=== PATIENT | male | born 1965 | race African-American/Black ===

== ENCOUNTER 2016-06-15 16:55 | Emergency (ER) | payer MEDICARE, OTHER ==
[2016-06-15] MEDS ORDERED: NORMAL SALINE 1000 ML 1,000 ML IV PRN (17:12)
[2016-06-15] MEDS ORDERED: THIAMINE HCL 100 MG, FOLIC ACID 1 MG in NORMAL SALINE 50 ML IV ONE (17:13)
[2016-06-15 17:27] LABS: ABSOLUTE EOSINOPHILS # (AUTO) 0.1 10^3/uL (0.0-0.6); ABSOLUTE LYMPHOCYTES (AUTO) 1.3 10^3/uL (0.5-4.7); ABSOLUTE MONOCYTES (AUTO) 0.3 10^3/uL (0.1-1.4); ABSOLUTE NEUT (AUTO) 1.7 10^3/uL (1.7-8.2); BASOPHILS % (AUTO) 0.8 % (0-2); EOSINOPHILS % (AUTO) 1.6 % (0-6); HEMATOCRIT 38.2 % (37.9-51.0); HEMOGLOBIN 12.5 g/dL (13.5-17.0); HGB HCT DIFFERENCE -0.7; LYMPHOCYTES % (AUTO) 37.9 % (13-45); MEAN CORPUSCULAR HEMOGLOBIN 25.4 pg (27.0-33.4); MEAN CORPUSCULAR HGB CONC 32.7 g/dL (32.0-36.0); MEAN CORPUSCULAR VOLUME 78 fl (80-97); MONOCYTES % (AUTO) 9.9 % (3-13); RED BLOOD COUNT 4.91 10^6/uL (4.35-5.55); RED CELL DISTRIBUTION WIDTH 15.4 % (11.5-14.0); SEGMENTED NEUTROPHILS % (AUTO) 49.8 % (42-78); WHITE BLOOD COUNT 3.4 10^3/uL (4.0-10.5)
[2016-06-15 17:51] LABS: ALANINE AMINOTRANSFERASE 27 U/L (21-72); ALBUMIN 3.9 g/dL (3.5-5.0); ALKALINE PHOSPHATASE 76 U/L (38-126); ANION GAP 14 (5-19); ASPARTATE AMINO TRANSFERASE 36 U/L (17-59); BLOOD UREA NITROGEN 8 mg/dL (7-20); CARBON DIOXIDE 24 mmol/L (22-30); CHLORIDE 104 mmol/L (98-107); GLUCOSE 86 mg/dL (75-110); POTASSIUM 3.6 mmol/L (3.6-5.0); SODIUM 142.3 mmol/L (137-145)
[2016-06-15 17:52] LABS: ALCOHOL 106 mg/dL (NONE DETECTED); BILIRUBIN,TOTAL 0.3 mg/dL (0.2-1.3); CREATINE KINASE 185 U/L (55-170); LIPASE 98.2 U/L (23-300); TOTAL PROTEIN 6.5 g/dL (6.3-8.2)
[2016-06-15 17:59] LABS: APPEARANCE,URINE CLEAR; BILIRUBIN,URINE NEGATIVE (NEGATIVE); GLUCOSE, URINE NEGATIVE (NEGATIVE); KETONES,URINE NEGATIVE (NEGATIVE); LEUKOCYTE ESTERASE,URINE NEGATIVE (NEGATIVE); NITRITE,URINE NEGATIVE (NEGATIVE); PROTEIN,URINE NEGATIVE (NEGATIVE); URINE SPECIFIC GRAVITY 1.001; UROBILINOGEN,URINE NEGATIVE mg/dL (<2.0)
[2016-06-15 18:02] LABS: CREATINE KINASE MB 1.16 ng/mL (<4.55)
[2016-06-15 18:03] LABS: TROPONIN I < 0.012 ng/mL
[2016-06-15 18:12] LABS: URINE BARBITURATES SCREEN NEGATIVE; URINE METHADONE SCREEN NEGATIVE; URINE OPIATES LOW NEGATIVE; URINE PHENCYCLIDINE SCREEN NEGATIVE
[2016-06-15] MEDS ORDERED: HALOPERIDOL LACTATE INJ 5 MG/1 ML VIAL IV ONE (18:12)
--- NOTE | 2016-06-15 18:37 | ER Document Report ---
ED General - General Time seen by provider: 17:00 Mode of Arrival: Medic Information source: Emergency Med Personnel TRAVEL OUTSIDE OF THE [place] IN LAST 30 DAYS: No <NIKA LUND - Last Filed: 06/15/16 19:24> <KAMLA WATERS - Last Filed: 06/16/16 10:28> - General Chief Complaint: Altered Mental Status Stated Complaint: POSSIBLE ETOH Notes: 51-year-old male brought by EMS personnel report that he was found with slurred speech and Jean's. Staff there initially called [place] police and then called EMS. Patient has no specific complaints now but has been uncooperative during his stay here has attempted on 2 occasions to smoke in the bathroom. He does not answer questions regarding any recent symptoms he might have. Known is with him now. Physical Exam: General: Alert, appears well. Ambulating without difficulty HEENT: Normocephalic. Atraumatic. PERRLA. Extraocular movements intact. Oropharynx clear. Neck: Supple. Non-tender. Respiratory: No respiratory distress. Clear and equal breath sounds bilaterally. Cardiovascular: Regular rate and rhythm. Abdominal: Normal Inspection. Soft, non-tender. No distension. Normal Bowel Sounds. Back: Non-tender. No deformity or step off. Extremities: Moves all four extremities. Upper extremities: Normal inspection. Non-tender. Normal color. Normal ROM. Normal temperature. Lower extremities: Normal inspection. Non-tender. No edema. Normal color. Normal ROM. Normal temperature. Neurological: Speech is somewhat garbled. No cranial nerve deficits appreciated. Patient moves all extremities well but does not cooperate with formal neurologic testing patient is alert and oriented person and place Psychological: Normal affect. Normal Mood. Unable to assess presence or absence of audiovisual hallucinations, suicidal ideation, or homicidal ideation Skin: Warm. Dry. Normal color. (NIKA LUND) - Related Data Allergies/Adverse Reactions: No Known Allergies Allergy (Verified 10/19/14 17:25) Past Medical History - General Cannot obtain history due to: Intoxicated, Uncooperative - Social History Family History: Other - Unable to obtain - Past Medical History Cardiac Medical History: Reports: Hx Hypertension Denies: Hx Coronary Artery Disease, Hx Heart Attack Pulmonary Medical History: Reports: Hx COPD, Hx Pneumonia Denies: Hx Asthma, Hx Bronchitis, Hx Tuberculosis Neurological Medical History: Denies: Hx Cerebrovascular Accident, Hx Seizures Endocrine Medical History: Reports: Hx Diabetes Mellitus Type 2 Renal/ Medical History: Reports: Hx Kidney Stones GI Medical History: Reports: Hx Gastroesophageal Reflux Disease, Hx Hepatitis - Hepatitis C Musculoskeltal Medical History: Reports Hx Arthritis Psychiatric Medical History: Reports: Hx Schizophrenia Infectious Medical History: Reports: Hx Hepatitis - Hepatitis C Past Surgical History: Reports: Hx Cholecystectomy - MOM STATES THAT SHE THINKS THIS WAS REMOVED. Denies: Hx Appendectomy, Hx Bowel Surgery, Hx Coronary Artery Bypass Graft, Hx Gastric Bypass Surgery, Hx Herniorrhaphy, Hx Pacemaker, Hx Tonsillectomy - Immunizations Hx Diphtheria, Pertussis, Tetanus Vaccination: No <NIKA LUND - Last Filed: 06/15/16 19:24> - Social History Smoking Status: Current Every Day Smoker Cigarette use (# per day): Yes Chew tobacco use (# tins/day): No Smoking Education Provided: No <KAMLA WATERS - Last Filed: 06/16/16 10:28> Review of Systems - Review of Systems -: Yes ROS unobtainable due to patient's medical condition <NIKA LUND - Last Filed: 06/15/16 19:24> Course - Laboratory Result Diagrams: 06/15/16 17:16 06/15/16 17:16 - Diagnostic Test Radiology reviewed: Image reviewed, Reports reviewed <NIKA LUND - Last Filed: 06/15/16 19:24> - Laboratory Result Diagrams: 06/15/16 17:16 06/15/16 17:16 <KAMLA WATERS - Last Filed: 06/16/16 10:28> - Re-evaluation Re-evalutation: 06/15/16 18:35 Record shows patient has a history of schizophrenia. He is currently intoxicated and not safe for discharge. I cannot tell if he has refused to cooperate with exam and further investigation of possible mental illness is related to his alcohol use or simply schizophrenia. Current plan is to keep him in the emergency department overnight with IV fluids along with thiamine and folate psychiatric evaluation in a.m. The patient is not currently medically clear and is not competent to choose to refuse care in the emergency department 06/15/16 19:22 And the radiologist finding of possible left lower lobe infiltrate patient will be started on Zithromax Z-Murphy 06/15/16 19:23 (NIKA LUND) - Vital Signs Vital signs: Temp Pulse Resp BP Pulse Ox 98.1 F 78 20 139/91 H 97 06/16/16 09:33 06/16/16 09:33 06/16/16 09:33 06/16/16 09:33 06/16/16 09:33 (NIKA LUND) (KAMLA WATERS) - Laboratory Laboratory results interpreted by me: 06/15/16 06/15/16 17:16 17:16 WBC 3.4 L Hgb 12.5 L MCV 78 L MCH 25.4 L RDW 15.4 H Creatine Kinase 185 H Salicylates < 1.0 L Acetaminophen < 10 L (NIKA LUND) (KAMLA WATERS) - EKG Interpretation by Me Additional EKG results interpreted by me: 06/15/16 18:34 EKG reviewed by myself shows sinus tachycardia at 104 with no acute changes ( NIKA LUND) Discharge <NIKA LUND - Last Filed: 06/15/16 19:24> <KAMLA WATERS - Last Filed: 06/16/16 10:28> - Discharge Clinical Impression: Pneumonia Qualifiers: Pneumonia type: due to unspecified organism Laterality: left Lung location: lower lobe of lung Qualified Code(s): J18.1 - Lobar pneumonia, unspecified organism Alcohol intoxication Qualifiers: Complication of substance-induced condition: uncomplicated Qualified Code(s): F10.120 - Alcohol abuse with intoxication, uncomplicated Condition: Stable Disposition: HOME, SELF-CARE Additional Instructions: Pneumonia Your examination indicates that you have pneumonia. This is an infection of the lung tissue, usually caused by bacteria or a virus. Symptoms include cough, fever, shaking chills, chest pain, shortness of breath, and coughing up bloody sputum. Treatment for bacterial pneumonia includes rest, antibiotics for 10 to 14 days, increasing your clear liquid intake, a cool mist humidifier at your bedside, and fever medication. Often, a repeat chest X-ray is performed in a few weeks--even if you feel better--to ascertain whether the infection has completely resolved and no underlying lung problem is present. You should call the physician if you develop persistent vomiting, high fever that does not respond to fever medication, increasing shortness of breath , confusion, or lethargy. Also, failure to improve within two to three days is an indication for re-examination. Follow up with your physician tomorrow for further care or return to the ED IMMEDIATELY if symptoms worsen or new concerns occur Prescriptions: Azithromycin [Zithromax 250 mg Tablet] 250 mg PO ASDIR PRN #6 tablet PRN Reason:
[2016-06-15] MEDS ORDERED: HALOPERIDOL LACTATE INJ 5 MG/1 ML VIAL IV PRN (19:46)
--- NOTE | 2016-06-15 20:06 | EKG REPORT ---
SEVERITY:- ABNORMAL ECG - SINUS TACHYCARDIA PROBABLE LVH WITH SECONDARY REPOL ABNRM : Confirmed by: Chanelle Donnelly 15-Jun-2016 20:05:57
[2016-06-16] MEDS ORDERED: ASPIRIN 81 MG TABLET, CHEWABLE PO ONE (02:14)
--- NOTE | 2016-06-16 09:08 | ER Document Report ---
Doctor's Note Notes: 06/16/16 10:26 Patient reevaluated sober and stable at this time vital signs have been stable. Family is now here to take patient home Patient will be discharged home with antibiotics for left lower lobe pneumonia
--- NOTE | 2016-06-16 09:13 | PSYCHOLOGICAL NOTE ---
Psych Note - Psych Note Psych Note: Patient is a 51 year old male who presented last night after he was found at [facility] with slurred speech, possibly intoxicated. Patient is known to this Department and this Clinician for prior episodes of similar etiology. Patient' s BAL upon arrival was 106, and patient is currently clinically sober this morning. Patient now states he was not drunk and nothing happened. Patient states he lives with his mother. He states he has a doctor, but does not go to the doctor like he used to. Patient is a poor historian and not able to provide any meaningful information. Patient's mother, Miguel Childs or states she was unaware the patient was in the ER. Mother states he continues to receive outpatient medication management with [facility] and declines to report what occurred to hinder the ACTT Service, as this service was initiated in November of this past year. Mother reports she has no concerns with patient discharging and returning home. She states she will secure transportation and come to pick him up this morning. Patient is alert and oriented. Mood is calm and cooperative. Patient denies suicidal/homicidal ideations, intent, plan, or means. Patient denies A/V H. Thought processes are organized. Conversational speech was low for rate, tone, and prosody. Intellectual abilities were estimated within the low functioning range. Attention and focus were fair. Insight was poor, judgment and impulse control appear to have improved to fair. Diagnosis: 298.9 (F29) Unspecified Schizophrenia Spectrum and Other Psychotic Disorder R/O IDD Patient is psychiatrically cleared for discharge and recommended for rescind IVC. Patient is considered to be at his baseline functioning and this episode appears to be precipitated by alcohol use and it is unclear why the patient was brought to the ED with no specific medical complaint. I consulted with Dr. Madrid regarding the care and management of this patient. ED MD is in agreement with disposition and recommendations.
[2016-06-16 09:42] VITALS: BP 139/91
== END 2016-06-16 10:00 | disposition home or self-care (01) ==
LOC: ER 16:55
DX: J18.1 Lobar pneumonia, unspecified organism (principal); R41.82 Altered mental status, unspecified; F10.120 Alcohol abuse with intoxication, uncomplicated
CPT/HCPCS: 93005; 99285; 96361; 96375; 96365; 36415; 82553; 80307 ×4; 82550; 83690; 83735; 85025; 80053; 81001; 84484; 71010; 70450; 93010; A9270; J3490; J1630; J3411; J7030

== ENCOUNTER 2016-07-14 09:03 | Emergency (ER) | payer MEDICARE, MEDICAID ==
[2016-07-14 10:20] LABS: ABSOLUTE LYMPHOCYTES (AUTO) 1.1 10^3/uL (0.5-4.7); ABSOLUTE MONOCYTES (AUTO) 0.5 10^3/uL (0.1-1.4); ABSOLUTE NEUT (AUTO) 5.9 10^3/uL (1.7-8.2); BASOPHILS % (AUTO) 0.3 % (0-2); EOSINOPHILS % (AUTO) 0.1 % (0-6); HEMOGLOBIN 12.9 g/dL (13.5-17.0); HGB HCT DIFFERENCE -1.3; LYMPHOCYTES % (AUTO) 14.4 % (13-45); MEAN CORPUSCULAR HGB CONC 32.3 g/dL (32.0-36.0); MEAN CORPUSCULAR VOLUME 77 fl (80-97); MONOCYTES % (AUTO) 7.2 % (3-13); RED BLOOD COUNT 5.16 10^6/uL (4.35-5.55); RED CELL DISTRIBUTION WIDTH 16.1 % (11.5-14.0); WHITE BLOOD COUNT 7.6 10^3/uL (4.0-10.5)
[2016-07-14 10:34] LABS: APPEARANCE,URINE CLEAR; BILIRUBIN,URINE NEGATIVE (NEGATIVE); GLUCOSE, URINE NEGATIVE (NEGATIVE); KETONES,URINE NEGATIVE (NEGATIVE); LEUKOCYTE ESTERASE,URINE NEGATIVE (NEGATIVE); NITRITE,URINE NEGATIVE (NEGATIVE); PROTEIN,URINE NEGATIVE (NEGATIVE); URINE SPECIFIC GRAVITY 1.006; UROBILINOGEN,URINE NEGATIVE mg/dL (<2.0)
[2016-07-14 10:46] LABS: ALANINE AMINOTRANSFERASE 27 U/L (21-72); ALBUMIN 4.3 g/dL (3.5-5.0); ALKALINE PHOSPHATASE 75 U/L (38-126); ANION GAP 13 (5-19); ASPARTATE AMINO TRANSFERASE 32 U/L (17-59); BILIRUBIN,DIRECT 0.2 mg/dL (0.0-0.4); BILIRUBIN,TOTAL 0.4 mg/dL (0.2-1.3); BLOOD UREA NITROGEN 10 mg/dL (7-20); CALCIUM 9.3 mg/dL (8.4-10.2); CARBON DIOXIDE 27 mmol/L (22-30); CHLORIDE 105 mmol/L (98-107); CREATININE RESULT 0.87 mg/dL (0.52-1.25); GLUCOSE 85 mg/dL (75-110); POTASSIUM 3.9 mmol/L (3.6-5.0); SODIUM 144.9 mmol/L (137-145); TOTAL PROTEIN 7.3 g/dL (6.3-8.2)
[2016-07-14 10:47] LABS: ALCOHOL < 10 mg/dL (NONE DETECTED)
[2016-07-14 11:03] LABS: URINE BARBITURATES SCREEN NEGATIVE; URINE METHADONE SCREEN NEGATIVE; URINE OPIATES LOW NEGATIVE; URINE PHENCYCLIDINE SCREEN NEGATIVE
--- NOTE | 2016-07-14 11:28 | PSYCHOLOGICAL NOTE ---
Psych Note - Psych Note Psych Note: Patient is a 51 year old male who presents via his family member with reports that he is acting erratic and kept them awake all night. Patient is known to this clinician and this Department for numerous prior episodes of similar etiology. Patient is diagnosed with Schizophrenia and has a long history of mental health treatment. Patient today voices no complaints himself. He states he is here to get his medications straightened out. He is observed laying in his bed, and at times talking as though he is engaging in a reciprocal conversation. Patient states he has been taking his medications, but cannot or will not verbally state which medications he is prescribed. He also has difficulty recalling the name of his psychiatric provider and instead names his PCM. Patient provides verbal consent to speak with his relative who dropped him off at the hospital. Sister, Elizabeth and Niece, Lou states: Patient has been demonstrating more and more erratic behaviors. Collectively, they report the patient has been wandering away from the home at all hours of the night, approaching strangers to include children at the bus stop, toileting outside, attempting to enter stranger's homes, and walked 15+ miles to other family member's homes. Patient was also noted to have made threatening statements towards family, and others, "Im going to f you up." Family reports concerns for patient's safety and the safety of their mother, whom should be noted is his legal guardian. Sister states guardian is elderly and recently had a stroke and is no longer able to serve in that capacity. Discussed with family the need to contact [facility] which they state they had already contacted and have been put in touch with [facility] [place] to assist with placement seeking, as well as DSS to request assistance with the guardianship. Patient is A&O to name and location. Mood is anxious with congruent affect. Patient denied suicidal/homicidal ideations, intent, plan, or means. Patient denies A/V H; however presented as though he was responding to internal stimuli. Thought processes were disorganized. Conversational speech was WNL for this patient. Intellectual abilities were estimated within lower average range. Attention and focus were poor. Insight, judgment, and impulse control were poor. Unspecified Schizophrenia and Other Psychotic Disorder Patient is recommended for IVC for further evaluation and observation. Patient is severely and persistently mentally ill with Schizophrenia; however, presents today outside of his baseline functioning, aeb engaging in reciprocal conversations with his AH; wandering from home, aggression towards family, etc. APS was contacted to report concerns over patient's living environment as he is noted to live with his mother, who is also his guardian but is elderly and recently suffered a stroke. I consulted with Dr. Madrid in regards to the care and management of this patient. ED MD is in agreement with disposition and recommendations.
--- NOTE | 2016-07-14 12:44 | ER Document Report ---
ED General - General Chief Complaint: Psych Problem Stated Complaint: PSYCH EVALUATION Mode of Arrival: Medic Information source: Patient Notes: 51-year-old male history of psychiatric disorder who is been off his medications recently presents with concerns for self-harm gesture and aggressive behavior TRAVEL OUTSIDE OF THE [place] IN LAST 30 DAYS: No - HPI Onset: Just prior to arrival Onset/Duration: Sudden Quality of pain: No pain Severity: Moderate Pain Level: Denies Associated symptoms: Other Exacerbated by: Denies Relieved by: Denies Similar symptoms previously: Yes Recently seen / treated by doctor: Yes - Related Data Allergies/Adverse Reactions: No Known Allergies Allergy (Verified 07/14/16 09:10) Home Medications: Current Home Medications Benztropine Mesylate [Cogentin 1 mg Tablet] 1 mg PO BID 07/14/16 [History] Lubiprostone [Amitiza 24 Mcg Capsule] 24 mcg PO BID 07/14/16 [History] Metformin HCl [Glucophage] 500 mg PO DAILY 07/14/16 [History] Past Medical History - Social History Smoking Status: Current Some Day Smoker Cigarette use (# per day): Yes Chew tobacco use (# tins/day): No Smoking Education Provided: No Frequency of alcohol use: None Drug Abuse: None Family History: Other - Unable to obtain - Past Medical History Cardiac Medical History: Reports: Hx Hypertension Denies: Hx Coronary Artery Disease, Hx Heart Attack Pulmonary Medical History: Reports: Hx COPD, Hx Pneumonia Denies: Hx Asthma, Hx Bronchitis, Hx Tuberculosis Neurological Medical History: Denies: Hx Cerebrovascular Accident, Hx Seizures Endocrine Medical History: Reports: Hx Diabetes Mellitus Type 2 Renal/ Medical History: Reports: Hx Kidney Stones. Denies: Hx Peritoneal Dialysis GI Medical History: Reports: Hx Gastroesophageal Reflux Disease, Hx Hepatitis - Hepatitis C Musculoskeltal Medical History: Reports Hx Arthritis Psychiatric Medical History: Reports: Hx Schizophrenia Infectious Medical History: Reports: Hx Hepatitis - Hepatitis C Past Surgical History: Reports: Hx Cholecystectomy - MOM STATES THAT SHE THINKS THIS WAS REMOVED. Denies: Hx Appendectomy, Hx Bowel Surgery, Hx Coronary Artery Bypass Graft, Hx Gastric Bypass Surgery, Hx Herniorrhaphy, Hx Pacemaker, Hx Tonsillectomy - Immunizations Hx Diphtheria, Pertussis, Tetanus Vaccination: No Review of Systems - Review of Systems Notes: REVIEW OF SYSTEMS: CONSTITUTIONAL : Denies fever, chills, or sweats. Denies recent illness. EENT: Denies eye, ear, throat, or mouth pain or symptoms. Denies nasal or sinus congestion or discharge. Denies throat, tongue, or mouth swelling or difficulty swallowing. CARDIOVASCULAR: Denies chest pain. Denies palpitations or racing or irregular heart beat. Denies ankle edema. RESPIRATORY: Denies cough, cold, or chest congestion. Denies shortness of breath, difficulty breathing, or wheezing. GASTROINTESTINAL: Denies abdominal pain or distention. Denies nausea, vomiting , or diarrhea. Denies blood in vomitus, stools, or per rectum. Denies black, tarry stools. Denies constipation. GENITOURINARY: Denies difficulty urinating, painful urination, burning, frequency, blood in urine, or discharge. MUSCULOSKELETAL: Denies back or neck pain or stiffness. Denies joint pain or swelling. SKIN: Denies rash, lesions or sores. HEMATOLOGIC : Denies easy bruising or bleeding. LYMPHATIC: Denies swollen, enlarged glands. NEUROLOGICAL: Denies confusion or altered mental status. Denies passing out or loss of consciousness. Denies dizziness or lightheadedness. Denies headache. Denies weakness or paralysis or loss of use of either side. Denies problems with gait or speech. Denies sensory loss, numbness, or tingling. Denies seizures. PSYCHIATRIC: Patient has aggressive behavior ALL OTHER SYSTEMS REVIEWED AND NEGATIVE. Dictation was performed using [employer] voice recognition software PHYSICAL EXAMINATION: GENERAL: Well-appearing, well-nourished and in no acute distress. HEAD: Atraumatic, normocephalic. EYES: Pupils equal round and reactive to light, extraocular movements intact, sclera anicteric, conjunctiva are normal. ENT: Nares patent, oropharynx clear without exudates. Moist mucous membranes. NECK: Normal range of motion, supple without lymphadenopathy LUNGS: Breath sounds clear to auscultation bilaterally and equal. No wheezes rales or rhonchi. HEART: Regular rate and rhythm without murmurs ABDOMEN: Soft, nontender, nondistended abdomen. No guarding, no rebound. No masses appreciated. Musculoskeletal: Normal range of motion, no pitting or edema. No cyanosis. NEUROLOGICAL: Cranial nerves grossly intact. Normal speech, normal gait. Normal sensory, motor exams PSYCH: Patient noted to be confused intermittently and states he is ready to leave SKIN: Warm, Dry, normal turgor, no rashes or lesions noted. Physical Exam - Vital signs Vitals: Temp Pulse Resp BP Pulse Ox 98.1 F 118 H 18 149/80 H 99 07/14/16 09:09 07/14/16 09:09 07/14/16 09:09 07/14/16 09:09 07/14/16 09:09 Course - Re-evaluation Re-evalutation: 07/14/16 16:07 I believe patient is medically stable but will require a mental health evaluation regarding his medications. I will hold him involuntarily for his own safety - Vital Signs Vital signs: Temp Pulse Resp BP Pulse Ox 98.1 F 118 H 18 149/80 H 99 07/14/16 09:09 07/14/16 09:09 07/14/16 09:09 07/14/16 09:09 07/14/16 09:09 - Laboratory Result Diagrams: 07/14/16 09:49 07/14/16 09:49 Laboratory results interpreted by me: 07/14/16 07/14/16 09:49 09:49 Hgb 12.9 L MCV 77 L MCH 25.0 L RDW 16.1 H Acetaminophen < 10 L - EKG Interpretation by Nv EKG shows normal: Sinus rhythm, Trosper, Intervals, QRS Complexes Discharge - Discharge Clinical Impression: Mental disorder Schizophrenia Qualifiers: Schizophrenia type: unspecified Qualified Code(s): F20.9 - Schizophrenia, unspecified Condition: Stable Disposition: PSYCH HOSP/UNIT Additional Instructions: Please follow-up with the care plan provided to you by mental health team will return immediately if there are any other concerns
[2016-07-14] MEDS ORDERED: OXCARBAZEPINE 150 MG TABLET PO SCH (12:45)
[2016-07-14] MEDS: BUSPIRONE HCL 10 MG TABLET PO SCH (13:11)
--- NOTE | 2016-07-14 13:11 | EKG REPORT ---
SEVERITY:- ABNORMAL ECG - SINUS TACHYCARDIA CONSIDER LEFT VENTRICULAR HYPERTROPHY BORDERLINE PROLONGED QT INTERVAL : Confirmed by: Chandan Marshall MD 14-Jul-2016 13:10:22
[2016-07-14] MEDS: OLANZAPINE 5 MG TABLET PO SCH (15:57)
[2016-07-14] MEDS: BENZTROPINE MESYLATE 1 MG TABLET PO SCH (18:29)
[2016-07-14] MEDS: LUBIPROSTONE 24 MCG CAPSULE PO SCH (18:30)
[2016-07-14 18:36] VITALS: BP 140/87
[2016-07-14] MEDS ORDERED: BUSPIRONE HCL 10 MG TABLET PO SCH (22:00)
--- NOTE | 2016-07-15 08:41 | PSYCHOLOGICAL NOTE ---
Psych Note - Psych Note Psych Note: Patient is a 51 year old male who presents via his family member with reports that he is acting erratic and kept them awake all night. Patient is known to this clinician and this Department for numerous prior episodes of similar etiology. Patient is diagnosed with Schizophrenia and has a long history of mental health treatment. Patient today voices no complaints himself. He states he is here to get his medications straightened out. He is observed laying in his bed, and at times talking as though he is engaging in a reciprocal conversation. Patient states he has been taking his medications, but cannot or will not verbally state which medications he is prescribed. He also has difficulty recalling the name of his psychiatric provider and instead names his PCM. Patient provides verbal consent to speak with his relative who dropped him off at the hospital. Re-evaluation Patient states that he is just here for his medication. He continued to state that he is alright and asked to be told when he can leave. Patient is noted to be alert and orientated to person and place; circumstance seems to be waxing and waning. Mood is euthymic with congruent affect. Patient denies suicidal and homicidal ideations. Patient denies auditory and visual hallucinations; however , it appears he is responding to internal stimuli. Patient observed speaking to no one, i.e. "can't go that" and then looking at clinician and states "I'm cool." Thought processes are disorganized. Thought content is tangential as evidenced by the patient speaking about "blacks go to [place], Whites go to ( incoherent)" and then reverting to conversation with clinician stating that he just came for his medication. Patient's speech is pressured and at times incoherent. eye contact was fair. intellectual abilities appear to be low average range. attention and concentration are poor. insight, judgment, and impulse control are fair. 298.9 (F29) Unspecified Schizophrenia and Other Psychotic Disorder R/O 319 (F79) Unspecified Intellectual Disability Impression/plan: Patient is recommended to continue under IVC for further evaluation and observation. Patient is severely and persistently mentally ill with Schizophrenia and continues to present today outside of his baseline functioning, i.e. engaging in reciprocal conversations with his AH; wandering from home, aggression towards family, etc. APS was contacted to report concerns over patient's living environment as he is noted to live with his mother, who is also his guardian but is elderly and recently suffered a stroke. I consulted with Dr. Madrid in regards to the care and management of this patient. ED MD is in agreement with disposition and recommendations.
--- NOTE | 2016-07-15 09:09 | ER Document Report ---
Doctor's Note Notes: 07/15/16 09:08 Pt seen and evaluated. Resting comfortably. No complaints at this time. Eating and drinking normally. Awaiting psych recommendations at this time. 07/15/16 11:35 Pt going to [facility] under the care of Dr. Bliss. Patient stable for transfer at this time.
[2016-07-15] MEDS: BUSPIRONE HCL 10 MG TABLET PO SCH (09:22)
[2016-07-15] MEDS: OLANZAPINE 5 MG TABLET PO SCH (09:22)
[2016-07-15] MEDS: BENZTROPINE MESYLATE 1 MG TABLET PO SCH (09:23)
[2016-07-15] MEDS: LUBIPROSTONE 24 MCG CAPSULE PO SCH (09:23)
[2016-07-15] MEDS ORDERED: OXCARBAZEPINE 150 MG TABLET PO SCH (10:00)
[2016-07-15] MEDS ORDERED: METFORMIN HCL 500 MG TABLET PO SCH (10:00)
== END 2016-07-15 12:05 ==
LOC: ER 09:03
DX: F20.9 Schizophrenia, unspecified (principal); F99 Mental disorder, not otherwise specified; F79 Unspecified intellectual disabilities; F17.210 Nicotine dependence, cigarettes, uncomplicated; I10 Essential (primary) hypertension; J44.9 Chronic obstructive pulmonary disease, unspecified; E11.9 Type 2 diabetes mellitus without complications; K21.9 Gastro-esophageal reflux disease without esophagitis; Z87.442 Personal history of urinary calculi; Z86.19 Personal history of other infectious and parasitic diseases; Z90.49 Acquired absence of other specified parts of digestive tract
CPT/HCPCS: 93005; 99285; 36415; 80307 ×4; 85025; 80053; 81001; 93010; A9270 ×11